=== PATIENT | male | born 1955 | race Caucasian/White ===

== ENCOUNTER 2022-01-26 06:26 | Day surgery (SDC) | payer MEDICARE ==
[2022-01-26] VITALS (10 sets, daily range): BP systolic 102–127; BP diastolic 61–110
[~2022-01-26] VITALS: Ht 177.8 cm; Wt 80.0 kg
[2022-01-26 07:19] LABS: BASOPHILS # (AUTO) 0.1 X10'3 (0-0.2); BASOPHILS % (AUTO) 1.1 % (0-1); EOSINOPHILS # (AUTO) 0.3 X10'3 (0-0.9); EOSINOPHILS % (AUTO) 6.7 % (0-6); HEMATOCRIT 48.2 % (42.0-52.0); HEMOGLOBIN 16.5 g/dl (14.0-17.9); LYMPHOCYTES # (AUTO) 1.9 X10'3 (1.1-4.8); LYMPHOCYTES % (AUTO) 37.4 % (21-51); MEAN CORPUSCULAR HEMOGLOBIN 30.7 PG (27.0-31.0); MEAN CORPUSCULAR HGB CONC 34.2 g/dL (33.0-36.5); MEAN CORPUSCULAR VOLUME 89.8 FL (78-98); MEAN PLATELET VOLUME 8.1 FL (7.4-10.4); MONOCYTES # (AUTO) 0.5 X10'3 (0-0.9); MONOCYTES % (AUTO) 9.4 % (2-12); NEUTROPHILS # (AUTO) 2.3 X10'3 (1.8-7.7); NEUTROPHILS % (AUTO) 45.4 % (42-75); PLATELET COUNT 227 X10'3 (140-440); RED BLOOD COUNT 5.36 X10'6 (4.70-6.10); RED CELL DISTRIBUTION WIDTH 13.4 % (11.5-14.5); WHITE BLOOD COUNT 5.1 X10'3 (4.5-11.0)
[2022-01-26] MEDS ORDERED: LEVO175T2 PO (07:43)
[2022-01-26] MEDS ORDERED: CHOL20002 PO (07:43)
[2022-01-26] MEDS ORDERED: LORA-269 PO (07:43)
[2022-01-26] MEDS ORDERED: LIDO1ADH19 TOP (07:43)
[2022-01-26] MEDS ORDERED: MAGN500C4 PO (07:43)
[2022-01-26] MEDS ORDERED: TRAM50TA2 PO (07:43)
[2022-01-26] MEDS ORDERED: ASPI-1265 PO (07:43)
[2022-01-26] MEDS ORDERED: CYAN50003 PO (07:43)
[2022-01-26] MEDS ORDERED: LIOT5TAB10 PO (07:43)
[2022-01-26] MEDS ORDERED: ACYC-126 PO (07:43)
[2022-01-26] MEDS ORDERED: CYCL-1 PO (07:43)
[2022-01-26] MEDS ORDERED: midazolam 1 mg/ML 2ml injection ONE (09:11)
[2022-01-26] MEDS ORDERED: fentaNYL/PF 50MCG/1 ML 2ML syringe ONE (09:12)
== END 2022-01-26 11:40 | disposition home or self-care (01) ==
LOC: SSTAY O 06:26
PROVIDERS: ATTEND Radiology Vascular & Interventional Radiology
DX: M46.22 Osteomyelitis of vertebra, cervical region (principal); M46.42 Discitis, unspecified, cervical region; E03.9 Hypothyroidism, unspecified; F41.9 Anxiety disorder, unspecified; G89.29 Other chronic pain; Z20.822 Contact with and (suspected) exposure to COVID-19; Z85.850 Personal history of malignant neoplasm of thyroid; Z85.828 Personal history of other malignant neoplasm of skin; Z98.890 Other specified postprocedural states; Z79.899 Other long term (current) drug therapy; Z79.82 Long term (current) use of aspirin
CPT/HCPCS: 20225; 36415; 77012; 85025; 87070; 87635; 99152; 99153; C9803; J2250; J3010; 20206